=== PATIENT | male | born 1985 | race Caucasian/White ===

== ENCOUNTER 2021-05-13 14:15 | Outpatient (RCR) | payer OTHER, SELFPAY ==
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
--- NOTE | 2021-05-14 11:51 | PCOTNOTE ---
Patient called & cancelled scheduled appointment this date due to being in the hospital.
--- NOTE | 2021-05-19 16:08 | PCPTNOTE ---
Patient did not show up for scheduled appointment this date.
--- NOTE | 2021-05-21 15:01 | PCPTNOTE ---
Patient did not show up for scheduled appointment this date, Called & had to leave a message.
--- NOTE | 2021-05-25 14:55 | PCSTNOTE ---
Addendum entered by MAGALIE Clayton 05/25/21 15:06: Referring Doctor: Kaz Baig MD Original Note: Attending Provider: Jimbo Cornelius MD Patient:Radha Gasca Date of :1985 Patient has not returned for any further treatments since 05/13/2021, therefore he will be discharged at this time. Patient?s initial visit was on 05/11/21 and he returned for only one follow-up visit on 05/13/21. Therapy focused on addressing ambrose memory strategies to facilitate recall of new events/information however on both occasions, patient expressed extreme fatigue from not being able to sleep. For example at the initial visit, patient stated he had not slept since Tuesday morning when he was able to get three hours of sleep. His ability to participate in structured tasks was very limited as a result of fatigue. The goals have not been met due to poor attendance. Patient may return for a new evaluation and plan of care when he is able and ready to commit to consistent attendance and when he is able to achieve adequate refreshment from sleep. Thank you for referring this patient to [facility]. Please review, sign, date and return this discharge summary VIELKA. I have been updated about the patient's current status and I agree with discharge from the above service at this time. Referring Physician Date
--- NOTE | 2021-05-25 15:03 | PCOTNOTE ---
OCCUPATIONAL THERAPY DISCHARGE NOTIFICATION 05/25/21 Patient:Radha Gasca Date of :1985 Patient has not returned for any further treatments since 05/11/2021, therefore he will be discharged at this time. Patient?s initial OT evaluation was on 04/27/2021 and he had a total of 2 follow up visits. The goals have been not met due to poor attendance. Thank you for referring this patient to [facility]. Please review, sign, date and return this discharge summary VIELKA. I have been updated about the patient's current status and I agree with discharge from the above service at this time. Referring Physician Date Referring Physician: Kaz Baig MD
--- NOTE | 2021-05-25 15:48 | PCPTNOTE ---
PHYSICAL THERAPY DISCHARGE NOTE Patient:Radha Gasca Date of :1985 Patient has not returned for any further treatments since 05/13/2021, therefore he will be discharged at this time. Patient?s initial visit was on 05/11/21 had a total of 2 visits including the evaluation. Thank you for referring this patient to [facility]. Please review, sign, date and return this discharge summary VIELKA. I have been updated about the patient's current status and I agree with discharge from the above service at this time. Referring Physician Date
== END 2021-05-26 10:13 | disposition home or self-care (01) ==
LOC: ANHST 14:15
PROVIDERS: PCP Family Medicine
DX: S06.899D Other specified intracranial injury with loss of consciousness of unspecified duration, subsequent encounter (principal); K75.81 Nonalcoholic steatohepatitis (NASH); F10.10 Alcohol abuse, uncomplicated; F41.9 Anxiety disorder, unspecified
CPT/HCPCS: 92507; 92523; 97110; 97162; 97165